=== PATIENT | male | born 1985 | race Two or more races ===

== ENCOUNTER 2016-11-25 01:36 | Inpatient (IN) | payer SELFPAY ==
[2016-11-25] MEDS ORDERED: MORPHINE SULFATE 10 MG/ML INJ IV ONE ×2 (02:18→04:50)
[2016-11-25] MEDS ORDERED: NORMAL SALINE 1000 ML 1,000 ML IV ONE (02:19)
--- NOTE | 2016-11-25 02:26 | ER Document Report ---
ED General - General Chief Complaint: Abdominal Pain Stated Complaint: ABDOMINAL PAIN Time Seen by Provider: 11/25/16 02:06 TRAVEL OUTSIDE OF THE [place] IN LAST 30 DAYS: No - HPI Notes: Patient is a 31-year-old male with no significant past medical history who presents to the ED complaining of lower abdominal pain that is described as sharp/ache and is intermittent 2 days. Patient states that he is associated diarrhea over the last 2 days as well. Patient states that he noticed some discomfort with urination today along with producing a smaller amount. Patient states that he will feel some back pain as well bilaterally, but his pain is primarily in his abdomen. Patient states that he is still trying to eat and drink, but states that the food feels like it runs right through him. He has not had any nausea or vomiting. Patient states that he has felt warm today. He has not had any hnlf-rva-cfdadcc meds for symptoms. Patient states that he has not changed his diet at all and does not recollect any issues with his food that he ate. Patient states that he did have an appendectomy in the past. Patient denies any drug allergies or IV drug use. Denies any headache, documented fever, neck pain, URI, sore throat, chest pain, palpitations, syncope , cough, shortness of breath, wheeze, dyspnea, hematochezia, melena, urinary retention, hematuria, loss of control of bowel or bladder, numbness/tingling, saddle anesthesia, muscle paralysis/weakness, or rash. Last meal 1900 last night. - Related Data Allergies/Adverse Reactions: No Known Allergies Allergy (Unverified 11/25/16 02:01) Home Medications: Current Home Medications No Home Medications 11/25/16 [History] Past Medical History - Social History Smoking Status: Never Smoker Family History: Reviewed & Not Pertinent Patient has suicidal ideation: No Patient has homicidal ideation: No Renal/ Medical History: Denies: Hx Peritoneal Dialysis Past Surgical History: Reports: Hx Appendectomy Review of Systems - Review of Systems Notes: REVIEW OF SYSTEMS: CONSTITUTIONAL : see hpi. Denies recent illness. EENT: Denies eye, ear, throat, or mouth pain or symptoms. Denies nasal or sinus congestion or discharge. Denies throat, tongue, or mouth swelling or difficulty swallowing. CARDIOVASCULAR: Denies chest pain. Denies palpitations or racing or irregular heart beat. Denies ankle edema. RESPIRATORY: Denies cough, cold, or chest congestion. Denies shortness of breath, difficulty breathing, or wheezing. GASTROINTESTINAL: see hpi GENITOURINARY: see hpi MUSCULOSKELETAL: see hpi SKIN: Denies rash, lesions or sores. NEUROLOGICAL: Denies confusion or altered mental status. Denies passing out or loss of consciousness. Denies dizziness or lightheadedness. Denies headache. Denies weakness or paralysis or loss of use of either side. Denies problems with gait or speech. Denies sensory loss, numbness, or tingling. ALL OTHER SYSTEMS REVIEWED AND NEGATIVE. Dictation was performed using [employer] voice recognition software Physical Exam - Vital signs Vitals: Temp Pulse Resp BP Pulse Ox 98.8 F 89 16 133/81 H 100 11/25/16 01:40 11/25/16 01:40 11/25/16 01:40 11/25/16 01:40 11/25/16 01:40 Notes: PHYSICAL EXAMINATION: GENERAL: Well-appearing, well-nourished and in no acute distress, but pt appears uncomfortable. HEAD: Atraumatic, normocephalic. EYES: Pupils equal round and reactive to light, extraocular movements intact, sclera anicteric, conjunctiva are normal. ENT: Nares patent and without discharge. oropharynx clear without exudates. No tonsilar hypertrophy or erythema. Moist mucous membranes. No sinus tenderness. NECK: Normal range of motion, supple without lymphadenopathy. No rigidity. LUNGS: Breath sounds clear to auscultation bilaterally and equal. No wheezes rales or rhonchi. HEART: Regular rate and rhythm without murmurs, rubs, gallops. ABDOMEN: Soft, nontender, nondistended abdomen. No guarding, no rebound. No masses appreciated. Normal bowel sounds present. No CVA tenderness bilaterally. No inguinal hernia noted. Rectal: No prostate mass or tenderness. Guiac obtained. No impaction. Musculoskeletal: FROM to passive/active. Strength 5+/5. No focal deficits. Back: Non-tender to palp. FROM. SLR neg. Extremities: No cyanosis, clubbing, or edema b/l. Peripheral pulses 2+. Capillary refill less than 3 seconds. NEUROLOGICAL: Cranial nerves grossly intact. Normal speech, normal gait. Normal sensory, motor exams PSYCH: Normal mood, normal affect. SKIN: Warm, Dry, normal turgor, no rashes or lesions noted. Course - Re-evaluation Re-evalutation: 11/25/16 04:50 Patient is an afebrile, 31yo male with diverticulitis and 3 abscesses measuring approx 3.6cm each. Refer to CT scan result. WBC of 13.7. Pt continues to be in discomfort. blood cultures and lactic ordered Another dose of morphine ordered along with cipro 400 iv and flagyl 500iv Consulted Dr. Ross who does not believe surgery is needed right now. Recommends admit to hospitalist service and he will consult on the floor. 11/25/16 04:58 Called and reviewed with Dr. Wilson who declined admission as he believes he needs surgery. 11/25/16 04:[address] Ross who will come evaluate the patient. 11/25/16 06:17 Dr. Ross accepted patient. - Vital Signs Vital signs: Temp Pulse Resp BP Pulse Ox 98.8 F 89 16 133/81 H 98 11/25/16 01:40 11/25/16 01:40 11/25/16 01:40 11/25/16 01:40 11/25/16 05:21 - Laboratory Result Diagrams: 11/25/16 02:30 11/25/16 02:30 Laboratory results interpreted by me: 11/25/16 11/25/16 11/25/16 02:30 02:30 05:00 WBC 13.7 H Lymphocytes % 11.2 L Absolute Neutrophils 10.4 H Absolute Monocytes 1.6 H Lactic Acid 0.6 L AST 65 H Alkaline Phosphatase 167 H Total Protein 8.6 H Discharge - Discharge Clinical Impression: Diverticulitis Qualifiers: Diverticulitis site: unspecified part of intestinal tract Diverticulitis bleeding: without bleeding Diverticulitis complication: with abscess Qualified Code(s): K57.80 - Diverticulitis of intestine, part unspecified, with perforation and abscess without bleeding Condition: Stable Disposition: ADMITTED INPATIENT Admitting Provider: Surgicalist - Dr. Ross Unit Admitted: Surgical Floor
[2016-11-25 02:53] LABS: ABSOLUTE BASOPHILS # (AUTO) 0.1 10^3/uL (0.0-0.2); ABSOLUTE EOSINOPHILS # (AUTO) 0.2 10^3/uL (0.0-0.6); ABSOLUTE LYMPHOCYTES (AUTO) 1.5 10^3/uL (0.5-4.7); ABSOLUTE MONOCYTES (AUTO) 1.6 10^3/uL (0.1-1.4); ABSOLUTE NEUT (AUTO) 10.4 10^3/uL (1.7-8.2); BASOPHILS % (AUTO) 0.4 % (0-2); EOSINOPHILS % (AUTO) 1.3 % (0-6); HEMATOCRIT 39.9 % (37.9-51.0); HEMOGLOBIN 13.7 g/dL (13.5-17.0); HGB HCT DIFFERENCE 1.2; LYMPHOCYTES % (AUTO) 11.2 % (13-45); MEAN CORPUSCULAR HEMOGLOBIN 31.3 pg (27.0-33.4); MEAN CORPUSCULAR HGB CONC 34.3 g/dL (32.0-36.0); MEAN CORPUSCULAR VOLUME 91 fl (80-97); MONOCYTES % (AUTO) 11.6 % (3-13); RED BLOOD COUNT 4.38 10^6/uL (4.35-5.55); RED CELL DISTRIBUTION WIDTH 12.6 % (11.5-14.0); SEGMENTED NEUTROPHILS % (AUTO) 75.5 % (42-78); WHITE BLOOD COUNT 13.7 10^3/uL (4.0-10.5)
[2016-11-25 02:54] LABS: APPEARANCE,URINE CLEAR; BILIRUBIN,URINE NEGATIVE (NEGATIVE); GLUCOSE, URINE NEGATIVE (NEGATIVE); KETONES,URINE NEGATIVE (NEGATIVE); LEUKOCYTE ESTERASE,URINE NEGATIVE (NEGATIVE); NITRITE,URINE NEGATIVE (NEGATIVE); PROTEIN,URINE NEGATIVE (NEGATIVE); URINE SPECIFIC GRAVITY 1.021; UROBILINOGEN,URINE NEGATIVE mg/dL (<2.0)
[2016-11-25 03:16] LABS: ALANINE AMINOTRANSFERASE 38 U/L (21-72); ALBUMIN 4.5 g/dL (3.5-5.0); ALKALINE PHOSPHATASE 167 U/L (38-126); ANION GAP 11 (5-19); ASPARTATE AMINO TRANSFERASE 65 U/L (17-59); BILIRUBIN,DIRECT 0.4 mg/dL (0.0-0.4); BILIRUBIN,TOTAL 0.6 mg/dL (0.2-1.3); BLOOD UREA NITROGEN 20 mg/dL (7-20); CALCIUM 9.1 mg/dL (8.4-10.2); CARBON DIOXIDE 26 mmol/L (22-30); CHLORIDE 104 mmol/L (98-107); CREATININE RESULT 0.94 mg/dL (0.52-1.25); GLUCOSE 101 mg/dL (75-110); LIPASE 66.3 U/L (23-300); POTASSIUM 4.1 mmol/L (3.6-5.0); SODIUM 141.2 mmol/L (137-145); TOTAL PROTEIN 8.6 g/dL (6.3-8.2)
--- NOTE | 2016-11-25 04:26 | RADIOLOGY REPORT (SQ) ---
EXAM DESCRIPTION: CT ABD/PELVIS WITH IV ONLY COMPLETED DATE/TIME: 11/25/2016 3:58 am REASON FOR STUDY: Lower abdominal pain, h/o appendectomy COMPARISON: None. TECHNIQUE: CT scan of the abdomen and pelvis performed using helical scanning technique with dynamic intravenous contrast injection. No oral contrast. Images reviewed with lung, soft tissue, and bone windows. Reconstructed coronal and sagittal MPR images reviewed. Delayed images for evaluation of the urinary system also acquired. All images stored on PACS. All CT scanners at this facility use dose modulation, iterative reconstruction, and/or weight based d osing when appropriate to reduce radiation dose to as low as reasonably achievable (ALARA). [facility]: Dose Right [facility]: CareDose [facility]: Dose Right [facility]: Teradose 4D [facility]: Most[employer] CONTRAST TYPE AND DOSE: contrast/concentration: Isovue 370.00 mg/ml; Total Contrast Delivered: 91.0 ml; Total Saline Delivered: 40.0 ml RENAL FUNCTION: None required. The patient is less than 50 years old. RADIATION DOSE: Up-to-date CT equipment and radiation dose reduction techniques were employed. CTDIv ol: 11.6 mGy. DLP: 1333 mGy-cm.. LIMITATIONS: None. FINDINGS: LOWER CHEST: No significant findings. No nodules or infiltrates. Mild interstitial markin gs. LIVER: Normal size. No masses. No dilated ducts. SPLEEN: Normal size. No focal lesions. Splenule. PANCREAS: No masses. No significant calcifications. No adjacent inflammation or peripancreatic fluid collections. Pancreatic duct not dilated. GALLBLADDER: No identified stones by CT criteria. No inflammatory changes to suggest cholecystitis. ADRENAL GLANDS: No significant masses or asymmetry. RIGHT KIDNEY AND URETER: No solid masses. No significant calcifications. No hydronephrosis or hyd roureter. LEFT KIDNEY AND URETER: No solid masses. No significant calcifications. No hydronephrosis or hydr oureter. AORTA AND VESSELS: No aneurysm. No dissection. Renal arteries, SMA, celiac without stenosis. RETROPERITONEUM: No retroperitoneal adenopathy, hemorrhage or masses. BOWEL AND PERITONEAL CAVITY: Diverticulitis pattern includes cystic mural components with enhancing r ind measuring up to 3.6 cm (image 50 of series 602), 2.4 cm, and 1.4 cm consistent with early abscess formation. Moderate bowel wall thickening involves a 6 cm segment of mid sigmoid colon. No signifi cant free fluid with. APPENDIX: Surgically absent. PELVIS: No mass. No free fluid. Normal bladder. ABDOMINAL WALL: No masses. No hernias. BONES: No significant or acute findings. OTHER: No other significant finding. IMPRESSION: Moderate sigmoid diverticulitis with three mural abscesses measuring up to 3.6 cm each. Cannot exclude neoplastic involvement. CT surveillance recommended in 3 months or sooner as clinic ally warranted. TECHNICAL DOCUMENTATION: JOB ID: [id number] Quality ID # [id number]: Final reports with documentation of one or more dose reduction techniques (e.g., Au tomated exposure control, adjustment of the mA and/or kV according to patient size, use of iterative reconstruction technique) 2010 [employer]- All Rights Reserved
[2016-11-25] MEDS ORDERED: CIPROFLOXACIN 400 MG/D5W RTU 400 MG/200 ML RTUPB IV ONE (04:42)
[2016-11-25] MEDS ORDERED: METRONIDAZOLE 500 MG/NS RTU 100 ML IV ONE (04:43)
--- NOTE | 2016-11-25 07:07 | HISTORY AND PHYSICAL E ---
History and Physical NAME: ERIKA GOODRICH : 1985 AGE: 31Y ADMITTED: 11/25/2016 ROOM: 535 CHIEF COMPLAINT: Abdominal pains. HISTORY OF PRESENT ILLNESS: This is a 31-year-old male complaining of lower abdominal pains 3 days ago. This was associated with some discomfort with bowel movement and voiding and also chills and fever. Last night, the pains got worse and went to the emergency room, where a CAT scan of the abdomen revealed acute sigmoid diverticulitis with abscess. His white count is 13.7. PAST MEDICAL HISTORY: Unremarkable. SOCIAL HISTORY: Denies smoking. Drinks socially. Denies drug use. ALLERGIES: None known. FAMILY HISTORY: Both parents alive and well. REVIEW OF SYSTEMS: Denies any chest pain, shortness of breath, visual or hearing problems. No joint pains or balance or seizure problems. GI: As in HPI. PHYSICAL EXAMINATION: GENERAL: A well-developed, well-nourished 31-year-old male, alert and oriented, complaining of lower abdominal pain. HEENT/NECK: Neck is supple. No thyromegaly. LUNGS: Clear. HEART: Regular sinus rhythm. ABDOMEN: Soft with tenderness in both lower quadrants with rebound. EXTREMITIES: No edema. IMPRESSION: Acute sigmoid diverticulitis with abscess formation. The CAT scan showed sigmoid diverticulitis with abscess about 3.6 cm the biggest and another one about 2.5. PLAN: 1. Keep the patient n.p.o. 2. Start IV antibiotics. 3. Hydrate. 4. May need percutaneous drainage if amenable. 5. The patient may need exploratory laparotomy, but will discuss with Dr. Woody who is coming in. DICTATING PHYSICIAN: TEVIN FULTON M.D. [id number] PHY#: [id number] ID: [id number] JOB#: [id number] ACCT: [id number] cc:TEVIN FULTON M.D. NO Bri GARDNER
--- NOTE | 2016-11-25 08:27 | PDOC PROGRESS REPORT ---
Subjective Progress Note for:: 11/25/16 Subjective:: Lower abdominal pain is improved. Physical Exam Vital Signs: Temp Pulse Resp BP Pulse Ox 99 F 78 18 123/77 100 11/25/16 06:54 11/25/16 06:54 11/25/16 06:54 11/25/16 06:54 11/25/16 06:54 Intake & Output 11/24/16 11/25/16 11/26/16 06:59 06:59 06:59 Weight 83.4 kg General appearance: PRESENT: no acute distress, cooperative GI/Abdominal exam: PRESENT: other - Soft, nondistended, lower abdominal tenderness to palpation without peritoneal signs. Results Impressions: Abdomen/Pelvis CT 11/25/16 03:28 IMPRESSION: Moderate sigmoid diverticulitis with three mural abscesses measuring up to 3.6 cm each. Cannot exclude neoplastic involvement. CT surveillance recommended in 3 months or sooner as clinically warranted. Assessment & Plan - Diagnosis (1) Diverticulitis Qualifiers: Diverticulitis site: unspecified part of intestinal tract Diverticulitis bleeding: without bleeding Diverticulitis complication: with abscess Qualified Code(s): K57.80 - Diverticulitis of intestine, part unspecified, with perforation and abscess without bleeding Is this a current diagnosis for this admission?: Yes Plan: Will attempt to may manage the patient conservatively with IV antibiotics. Will discuss with radiology about the feasibility of percutaneous drainage. I think he will eventually need a sigmoid colon resection however surgery would be less risky and more likely to allow primary anastomosis if we can cool down the process with antibiotics first and do a bowel prep prior to surgery.
[2016-11-25] MEDS: NORMAL SALINE 1000 ML 1,000 ML IV PRN (23:17)
[2016-11-26] MEDS: NORMAL SALINE 1000 ML 1,000 ML IV PRN (10:58)
--- NOTE | 2016-11-26 11:12 | PROGRESS NOTE E ---
Progress Note NAME: ERIKA GOODRICH : 1985 AGE: 31Y DATE: 11/26/2016 ROOM: 535 SUBJECTIVE: Patient is ambulating along the hallway. I saw him in his room and the abdomen is soft with just minimal tenderness in the left lower quadrant. He is passing flatus. His temp is 98.5 degrees Fahrenheit. PLAN: We can start him on p.o. clear liquids for now and continue with IV antibiotics. He will need a follow-up CAT scan of the abdomen in about 3 days. In the meantime, we will hold increasing his diet until a repeat CAT scan is done. DICTATING PHYSICIAN: TEVIN FULTON M.D. [id number] PHY#: [id number] ID: [id number] JOB#: [id number] ACCT: [id number] cc: >
[2016-11-27 06:20] LABS: ABSOLUTE EOSINOPHILS # (AUTO) 0.3 10^3/uL (0.0-0.6); ABSOLUTE LYMPHOCYTES (AUTO) 1.5 10^3/uL (0.5-4.7); ABSOLUTE MONOCYTES (AUTO) 0.8 10^3/uL (0.1-1.4); ABSOLUTE NEUT (AUTO) 3.4 10^3/uL (1.7-8.2); BASOPHILS % (AUTO) 0.7 % (0-2); EOSINOPHILS % (AUTO) 4.6 % (0-6); HEMATOCRIT 39.1 % (37.9-51.0); HEMOGLOBIN 13.8 g/dL (13.5-17.0); HGB HCT DIFFERENCE 2.3; LYMPHOCYTES % (AUTO) 24.7 % (13-45); MEAN CORPUSCULAR HEMOGLOBIN 31.7 pg (27.0-33.4); MEAN CORPUSCULAR HGB CONC 35.3 g/dL (32.0-36.0); MEAN CORPUSCULAR VOLUME 90 fl (80-97); MONOCYTES % (AUTO) 12.7 % (3-13); RED BLOOD COUNT 4.34 10^6/uL (4.35-5.55); RED CELL DISTRIBUTION WIDTH 12.1 % (11.5-14.0); SEGMENTED NEUTROPHILS % (AUTO) 57.3 % (42-78); WHITE BLOOD COUNT 5.9 10^3/uL (4.0-10.5)
[2016-11-27] MEDS: NORMAL SALINE 1000 ML 1,000 ML IV PRN (08:41)
--- NOTE | 2016-11-27 17:08 | PROGRESS NOTE E ---
Progress Note NAME: ERIKA GOODRICH : 1985 AGE: 31Y DATE: 11/27/2016 ROOM: 535 SUBJECTIVE: He claims that he had a bowel movement and passing gas. He said his pains have almost practically subsided. OBJECTIVE: His abdomen is soft and practically nontender. His temperature is 98.5. PLAN: To continue him on a full liquid diet and repeat CT scan of the abdomen and pelvis tomorrow to see the status of the abscess. If the abscess is getting smaller or resolved, then we will put him on a soft diet and possibly discharge on p.o. antibiotics. He will see Dr. Woody in the office in 2 weeks. DICTATING PHYSICIAN: TEVIN FULTON M.D. [id number] PHY#: [id number] ID: [id number] JOB#: [id number] ACCT: [id number] cc: >
[2016-11-28] MEDS: NORMAL SALINE 1000 ML 1,000 ML IV PRN ×2 (05:43→17:14)
--- NOTE | 2016-11-28 11:48 | RADIOLOGY REPORT (SQ) ---
EXAM DESCRIPTION: CT ABD/PELVIS WITH IV ORAL COMPLETED DATE/TIME: 11/28/2016 11:35 am REASON FOR STUDY: follow up of diverticular abscess COMPARISON: 11/25/2016 TECHNIQUE: CT scan of the abdomen and pelvis performed with intravenous and oral contrast using melia deloris scanning technique with dynamic intravenous contrast injection. Images reviewed with lung, soft t issue, and bone windows. Reconstructed coronal and sagittal MPR images reviewed. Delayed images for e valuation of the urinary system also acquired. All images stored on PACS. All CT scanners at this facility use dose modulation, iterative reconstruction, and/or weight based d osing when appropriate to reduce radiation dose to as low as reasonably achievable (ALARA). [facility]: Dose Right [facility]: CareDose [facility]: Dose Right [facility]: Teradose 4D [facility]: [employer] CONTRAST TYPE AND DOSE: contrast/concentration: Isovue 370.00 mg/ml; Total Contrast Delivered: 87.0 ml; Total Saline Delivered: 65.0 ml RENAL FUNCTION: BUN 20 creatinine 0.9 RADIATION DOSE: Up-to-date CT equipment and radiation dose reduction techniques were employed. CTDIv ol: 8.9 - 12.8 mGy. DLP: 1243 mGy-cm. . LIMITATIONS: None. FINDINGS: Significant findings since the prior confined to the sigmoid colon. Residual inflammation with interval decrease in mural fluid collections. Residual small fluid collection measuring about 2.8 x 1.5 cm. No obstruction. No free air. Appearance is otherwise unchanged. IMPRESSION: Improving diverticulitis. Small residual mural fluid collection. TECHNICAL DOCUMENTATION: JOB ID: [id number] Quality ID # [id number]: Final reports with documentation of one or more dose reduction techniques (e.g., Au tomated exposure control, adjustment of the mA and/or kV according to patient size, use of iterative reconstruction technique) 2010 [employer]- All Rights Reserved
--- NOTE | 2016-11-28 15:23 | PDOC PROGRESS REPORT ---
Subjective Progress Note for:: 11/28/16 Subjective:: Patient feels better this morning and had a bowel movement and also has minimal tenderness and pains in the left lower quadrant. Physical Exam Vital Signs: Temp Pulse Resp BP Pulse Ox 98.0 F 62 17 113/78 100 11/28/16 12:31 11/28/16 12:31 11/28/16 12:31 11/28/16 12:31 11/28/16 12:31 Intake & Output 11/27/16 11/28/16 11/29/16 06:59 06:59 06:59 Intake Total 1870 4180 1630 Output Total 3 Balance 1870 4177 1630 Exam: Abdomen is soft with minimal tenderness at the left lower quadrant. Results Laboratory Results: 11/27/16 05:37 Impressions: Abdomen/Pelvis CT 11/28/16 00:00 IMPRESSION: Improving diverticulitis. Small residual mural fluid collection. Assessment & Plan - Diagnosis (1) Diverticulitis Qualifiers: Diverticulitis site: unspecified part of intestinal tract Diverticulitis bleeding: without bleeding Diverticulitis complication: with abscess Qualified Code(s): K57.80 - Diverticulitis of intestine, part unspecified, with perforation and abscess without bleeding Is this a current diagnosis for this admission?: Yes - Time Time Spent with patient: 15-24 minutes - Plan Summary Plan Summary: Patient still has a smaller residual fluid collection We will keep him on IV antibiotics for at least 48 hours since today's only the third day. We will also gradually increase his diet possibly to soft diet in a.m. if he continues to improve and remains afebrile.
[2016-11-28] MEDS ORDERED: INFLUENZA ADLT QUAD (36MOS+) 2017-18 VAC 0.5 ML SYR IM PRN (17:15)
[2016-11-29] MEDS: NORMAL SALINE 1000 ML 1,000 ML IV PRN (05:19)
[2016-11-29 09:20] VITALS: BP 109/64
[2016-11-29] MEDS ORDERED: CIPROFLOXACIN 400 MG/D5W RTU 400 MG/200 ML RTUPB IV SCH (10:00)
--- NOTE | 2016-11-29 10:38 | DISCHARGE SUMMARY E ---
Discharge Summary NAME: ERIKA GOODRICH : 1985 AGE: 31Y ADMITTED: 11/25/2016 DISCHARGED: 11/29/2016 REASON FOR ADMISSION: Acute abdominal pain. SUMMARY OF HOSPITALIZATION: The patient is a 31-year-old male, who presented to the emergency department complaining of abdominal pain. He was evaluated in the emergency department, where was found to have abdominal tenderness and leukocytosis. CT scan of the abdomen and pelvis was performed, which showed evidence of acute sigmoid diverticulitis with pericolonic abscess consistent with Hinchey classification 1, complicated diverticulitis. The patient was started on IV antibiotics, kept NPO and then slowly his diet was advanced. He tolerated this well. By the fourth hospital day, he was essentially pain-free and was ready for discharge home. FINAL DIAGNOSIS: ACUTE DIVERTICULITIS WITH CONTAINED PERICOLONIC PERFORATION, CLINICALLY RESOLVED. DISPOSITION: The patient was discharged home under the care of his family. Followup with [facility], specifically ELYSSA Leong in approximately 1-2 weeks. Take Marquis p.rLesleenLeslee pain and a script for ciprofloxacin and Flagyl provided. DICTATING PHYSICIAN: REJI CSOTT M.D. [id number] PHY#: [id number] ID: [id number] JOB#: [id number] ACCT: [id number] cc:REJI SCOTT M.D. [facility],
[2016-11-29] MEDS ORDERED: METRONIDAZOLE 500 MG/NS RTU 100 ML IV SCH (14:00)
== END 2016-11-29 11:30 | disposition home or self-care (01) | DRG 392 ==
LOC: ER 01:36 → UNDOADMIN 05:23 → EH 05:23 → 5 06:53
PROVIDERS: ATTEND Surgery
DX: K57.20 Diverticulitis of large intestine with perforation and abscess without bleeding (principal); Z90.49 Acquired absence of other specified parts of digestive tract
CPT/HCPCS: 36415; 74177; 80053; 81001; 82272; 83605; 83690; 85025; 87040; 90686; 96361; 96374; 96376; 99285; J0744; J2270; J7030